=== PATIENT | male | born 1965 | race Caucasian/White ===

== ENCOUNTER 2019-01-11 09:52 | Inpatient (IN) | payer MEDICAID ==
[2019-01-11] VITALS (8 sets, daily range): BP systolic 64–123; BP diastolic 26–63; Ht 175.3 cm; Wt 102.6 kg
[~2019-01-11] VITALS: Ht 175.3 cm; Wt 102.6 kg
[2019-01-11 11:05] LABS: PLATELET COUNT 169 x10^3mcL (130-400); RED CELL DISTRIBUTION WIDTH 13.6 % (11.5-14.5)
[2019-01-11 11:22] LABS: CALCIUM 8.1 mg/dL (8.5-10.1); CARBON DIOXIDE 23.2 mmol/L (21-32); CHLORIDE SERUM 97 mmol/L (98-107); CREATININE SERUM 1.1 mg/dL (0.7-1.3); GFR1 > 60 mL/min; GLUCOSE SERUM 138 mg/dL (74-106); POTASSIUM SERUM 3.4 mmol/L (3.5-5.1); SODIUM SERUM 131 mmol/L (136-145)
[2019-01-11 11:27] LABS: ALKALINE PHOSPHATASE 113 U/L (46-116); ALT/SGPT 25 U/L (16-63); AST/SGOT 29 U/L (15-37); BILIRUBIN TOTAL 1.12 mg/dL (0.20-1.00); TOTAL PROTEIN, SERUM 7.7 g/dL (6.4-8.2)
[2019-01-11 11:28] LABS: ALBUMIN 3.3 g/dL (3.4-5.0)
[2019-01-11 11:38] LABS: ATYPICAL LYMPH 1 %; BAND NEUTROPHIL 23 % (0-10); BASOPHIL 0 % (0-2); MONOCYTE 12 % (0-7); PLATELET MORPHOLOGY PLATELETS DECREASED; SEGMENTED NEUTROPHILS 59 % (37-75)
[2019-01-11 11:39] LABS: rbc morphology (normal/abnorm) ABNORMAL (NORMAL)
[2019-01-11 13:42] LABS: microscopic required? YES; urine erythrocyte NEGATIVE (NEGATIVE)
[2019-01-11 15:14] LABS: MAGNESIUM 1.7 mg/dL (1.8-2.4); PHOSPHOROUS 1.8 mg/dL (2.5-4.9)
[2019-01-11 15:16] LABS: CHOLESTEROL/HDL RATIO 3.3
[2019-01-11 15:17] LABS: T3 TOTAL 0.62 ng/mL
[2019-01-11 15:24] LABS: FREE T4 0.91 ng/dL (0.76-1.46); FREE THYROXINE INDEX 2.2 ug/dL (1.4-4.5); T4(THYROXINE) 6.2 ug/dL (4.7-13.3)
[2019-01-11 19:03] LABS: UA SPECIFIC GRAVITY <=1.005 (1.005-1.035); microscopic required? YES; urine erythrocyte NEGATIVE (NEGATIVE)
[2019-01-11 19:12] LABS: AMPHETAMINE QUAL UR POSITIVE (See below)
[2019-01-12 05:43] VITALS: BP 108/40
[2019-01-12 06:52] LABS: BASOPHIL % 0.4 % (0-2); PLATELET COUNT 155 x10^3mcL (130-400); RED CELL DISTRIBUTION WIDTH 14.1 % (11.5-14.5)
[2019-01-12 07:15] LABS: CALCIUM 7.9 mg/dL (8.5-10.1); CARBON DIOXIDE 22.2 mmol/L (21-32); CHLORIDE SERUM 106 mmol/L (98-107); CREATININE SERUM 0.9 mg/dL (0.7-1.3); GFR1 > 60 mL/min; GLUCOSE SERUM 98 mg/dL (74-106); PHOSPHOROUS 1.7 mg/dL (2.5-4.9); POTASSIUM SERUM 4.2 mmol/L (3.5-5.1); SODIUM SERUM 137 mmol/L (136-145)
[2019-01-12 09:36] VITALS: BP 106/49
[2019-01-12 12:00] VITALS: BP 108/58
[2019-01-12 17:21] VITALS: BP 120/65
[2019-01-12 20:59] VITALS: BP 116/68
[2019-01-13 04:58] VITALS: BP 141/66
[2019-01-13 06:24] LABS: CALCIUM 8.2 mg/dL (8.5-10.1); CARBON DIOXIDE 23.9 mmol/L (21-32); CHLORIDE SERUM 105 mmol/L (98-107); CREATININE SERUM 0.8 mg/dL (0.7-1.3); GFR1 > 60 mL/min; GLUCOSE SERUM 124 mg/dL (74-106); PHOSPHOROUS 2.7 mg/dL (2.5-4.9); POTASSIUM SERUM 4.2 mmol/L (3.5-5.1); SODIUM SERUM 137 mmol/L (136-145)
[2019-01-13 06:25] LABS: BASOPHIL % 0.1 % (0-2); PLATELET COUNT 153 x10^3mcL (130-400)
[2019-01-13 09:02] VITALS: BP 122/68
[2019-01-13 13:39] VITALS: BP 137/66
[2019-01-13 17:54] VITALS: BP 128/51
[2019-01-13 20:57] VITALS: BP 142/53
[2019-01-14 05:50] VITALS: BP 158/71
[2019-01-14 07:05] LABS: BASOPHIL % 0.5 % (0-2); PLATELET COUNT 180 x10^3mcL (130-400); RED CELL DISTRIBUTION WIDTH 13.7 % (11.5-14.5)
[2019-01-14 07:12] LABS: CALCIUM 8.6 mg/dL (8.5-10.1); CHLORIDE SERUM 106 mmol/L (98-107); CREATININE SERUM 0.7 mg/dL (0.7-1.3); GFR1 > 60 mL/min; GLUCOSE SERUM 126 mg/dL (74-106); PHOSPHOROUS 3.4 mg/dL (2.5-4.9)
[2019-01-14 07:16] VITALS: BP 142/63
[2019-01-14 07:31] LABS: SODIUM SERUM 140 mmol/L (136-145)
[2019-01-14 12:50] VITALS: BP 148/59
[2019-01-14 15:44] VITALS: BP 130/61
[2019-01-14 20:47] VITALS: BP 141/61
[2019-01-15 05:48] VITALS: BP 139/68
[2019-01-15] MEDS ORDERED: METFORMIN HYDR500 M1 PO (09:13)
[2019-01-15] MEDS ORDERED: LEVAQUIN750 MG PO (09:13)
[2019-01-15] MEDS ORDERED: ACCU-CHEK1 EAC2 MC (09:14)
[2019-01-15 09:15] VITALS: BP 119/51
[2019-01-15 09:23] VITALS: BP 119/51
== END 2019-01-15 11:17 | disposition home or self-care (01) | DRG 720 ==
LOC: ED 09:52 → DU 13:26 → ED 14:01 → DU 14:32
PROVIDERS: Emergency Medicine; ADMIT Internal Medicine
DX: A41.9 Sepsis, unspecified organism (principal); N17.0 Acute kidney failure with tubular necrosis; J96.01 Acute respiratory failure with hypoxia; J18.9 Pneumonia, unspecified organism; E44.0 Moderate protein-calorie malnutrition; E11.65 Type 2 diabetes mellitus with hyperglycemia; E87.1 Hypo-osmolality and hyponatremia; F15.10 Other stimulant abuse, uncomplicated; E83.42 Hypomagnesemia; E83.39 Other disorders of phosphorus metabolism; E87.6 Hypokalemia; E66.9 Obesity, unspecified; Z68.32 Body mass index [BMI] 32.0-32.9, adult; Z79.84 Long term (current) use of oral hypoglycemic drugs
CPT/HCPCS: 36600; 82962; 84439; 87804; J0696; J1815; J1885; J1956; J2405; J7030; Q0092